=== PATIENT | female | born 1985 | race Two or more races ===

== ENCOUNTER 2024-10-21 18:01 | Emergency (ER) | payer OTHER ==
[~2024-10-21] VITALS: Ht 162.6 cm; Wt 113.4 kg
[2024-10-21] MEDS ORDERED: KETOROLAC TROMETHAMINE 60 MG VIAL IM ONE (19:15)
[2024-10-21] MEDS ORDERED: TRIAMCINOLONE ACETONIDE 40 MG/ML VIAL IM ONE (19:15)
== END 2024-10-21 22:57 | disposition home or self-care (01) ==
LOC: ER 18:03
DX: S81.022A Laceration with foreign body, left knee, initial encounter (principal); V43.62XA Car passenger injured in collision with other type car in traffic accident, initial encounter; Y93.89 Activity, other specified; Y92.413 State road as the place of occurrence of the external cause; S01.82XA Laceration with foreign body of other part of head, initial encounter